=== PATIENT | male | born 1985 | race Caucasian/White ===

== ENCOUNTER 2018-11-02 01:13 | Emergency (ER) | payer SELFPAY ==
[2018-11-02 01:27] VITALS: BP 129/84
--- NOTE | 2018-11-02 01:35 | ED Physician Documentation ---
Sore Throat/Dental Pain - HISTORIAN Historian: patient - HPI Stated Complaint: Dental pain Chief Complaint: Dental Pain Onset: days ago (5) Context: Fractured Tooth Associated Symptoms: denies: fever, chills, sore throat - ROS CONST: no problems - PAST HX Past History: none Immunizations: referred to PCP Allergies/Adverse Reactions: Allergies Allergy/AdvReac Type Severity Reaction Status Date / Time No Known Allergies Allergy Verified 11/02/18 01:26 Home Medications: Ambulatory Orders Medication Instructions Recorded Clindamycin HCl 300 mg PO TID #30 capsule 11/02/18 Diclofenac Sodium 75 mg PO BID PRN #20 tablet. 11/02/18 - SOCIAL HX Smoking History: greater than 1 pack/day Alcohol Use: none Drug Use: none - FAMILY HX Family History: No - VITAL SIGNS Vital Signs: Vital Signs Temp Pulse Resp BP Pulse Ox 99.1 F 75 14 129/84 96 11/02/18 01:14 11/02/18 01:14 11/02/18 01:14 11/02/18 01:14 11/02/18 01:14 - REVIEWED ASSESSMENTS Nursing Assessment Reviewed: Yes Dental Pain Physical Exam - EXAM General Appearance: alert, mild distress Head/Neck: head nml inspection, trachea midline, no lymphadenopathy, thyroid nml Mouth/Throat: lips nml, gums nml, pharynx nml, dental tenderness, gum swelling around teeth, widespread dental decay Ear/Nose: nml inspection Respiratory: no resp. distress, breath sounds nml. No: wheezes, rales, rhonchi CVS: reg. rate & rhythm, heart sounds nml, murmur Abdomen: soft, no organomegaly Skin: warm/dry, normal color Neuro/Psych: none Discharge Clincal Impression: Dental caries Prescriptions: Clindamycin HCl 300 mg PO TID #30 capsule Diclofenac Sodium 75 mg PO BID PRN #20 tablet.dr COTTRELL Reason: pain Referrals: Primary Doctor,No [Primary Care Provider] - 2 Days Additional Instructions: You will need to see a dentist for definitive care of your teeth. Take clindamycin 300mg 3 times a day as directed. Take Diclofenac as directed and as needed for pain. Cool/warm compress to the jaw area. Condition: Stable Disposition: 01 HOME, SELF-CARE Decision to Admit: NO Date of Decison to Admit: 11/02/18 Decision Time: 01:38
[2018-11-02] MEDS: CLINDAMYCIN HCL 150 MG CAPSULE PO ONE (01:45)
[2018-11-02] MEDS: KETOROLAC TROMETHAMINE 60 MG/2 ML VIAL IM ONE (01:45)
== END 2018-11-02 01:55 | disposition home or self-care (01) ==
LOC: ED 01:13
DX: K02.9 Dental caries, unspecified (principal); Z72.0 Tobacco use
CPT/HCPCS: 96372; 99283; A9270; J1885